=== PATIENT | female | born 1985 ===

== ENCOUNTER 2021-06-06 08:05 | Day surgery (SDC) | payer MEDICAID ==
[~2021-06-06 08:05] MED LIST: Albuterol 0.083% 2.5 MG/3 ML Neb Soln NEB PRN; Bupivacaine 0.5% 30 ML SDV ONE; Lactated Ringers 1,000 ML IV SCH; Lidocaine 1%/Sod Bicarbonate in NS 8.4% 1 ML Syringe IDERM PRN; Sodium Chloride 0.9% 10 ML Syringe FLUSH SCH
--- NOTE | 2021-06-06 08:34 | PCM.PREANE ---
Preanesthetic Assessment - Procedure Proposed Procedure: lap choley - Anesthesia/Transfusion/Family Hx Anesthesia History: Prior Anesthesia Without Reaction Family History of Anesthesia Reaction: No Transfusion History: Prior Transfusion Without Reaction - Review of Systems General: No Symptoms Pulmonary: No Symptoms Cardiovascular: No Symptoms Gastrointestinal: Abdominal Pain (gall bladder), Nausea, Vomiting (since after thanksgiving) Neurological: No Symptoms Other: Reports: Anxiety - Physical Assessment NPO Status Date: 06/05/21 NPO Status Time: 20:00 Vital Signs: Last Vital Signs Temp 98.4 F 06/06/21 07:50 Pulse 78 06/06/21 07:50 Resp 18 06/06/21 07:50 BP 140/76 06/06/21 07:50 Pulse Ox 99 06/06/21 07:50 Height: 5 ft 3 in Weight: 85.6 kg ASA Class: 2 Mental Status: Alert & Oriented x3 Airway Class: Mallampati = 1 Dentition: Reports: Normal Dentition Thyro-Mental Finger Breadths: 3 Mouth Opening Finger Breadths: 3 ROM/Head Extension: Full Lungs: Clear to Auscultation, Normal Respiratory Effort Cardiovascular: Regular Rate, Regular Rhythm - Lab Values: Laboratory Last Values Urine HCG, Qual Negative (NEGATIVE) 06/06/21 07:50 - Allergies Allergies/Adverse Reactions: Allergies Allergy/AdvReac Type Severity Reaction Status Date / Time No Known Allergies Allergy Verified 06/05/21 12:34 - Blood Blood Available: No - Acknowledgements Anesthesia Type Planned: General Anesthesia Pt an Appropriate Candidate for the Planned Anesthesia: Yes Alternatives and Risks of Anesthesia Discussed w Pt/Guardian: Yes Pt/Guardian Understands and Agrees with Anesthesia Plan: Yes PreAnesthesia Questionnaire HEENT History: Reports: Impaired Vision, Other (See Below) Other HEENT History: wears glasses Cardiovascular History: Reports: Heart Murmur, Other (See Below) Other Cardiovascular History: patient states has murmur Respiratory History: Reports: Bronchitis, Recurrent Gastrointestinal History: Reports: Chronic Diarrhea, Other (See Below) Other Gastrointestinal History: RUQ pain Genitourinary History: Reports: None SUPERVISOR CLAIMS History: Reports: None Musculoskeletal History: Reports: Other (See Below) Other Musculoskeletal History: distal fibula fracture Psychiatric History: Reports: Anxiety, Depression, Suicide Attempt Endocrine/Metabolic History: Reports: Obesity/BMI 30+ Hematologic History: Reports: None Immunologic History: Reports: None Oncologic (Cancer) History: Reports: None Dermatologic History: Reports: None - Past Surgical History Head Surgeries/Procedures: Reports: None Cardiovascular Surgical History: Reports: None Respiratory Surgical History: Reports: None GI Surgical History: Reports: None Female Surgical History: Reports: Section Male Surgical History: Reports: None Endocrine Surgical History: Reports: None Neurological Surgical History: Reports: None Dermatological Surgical History: Reports: None - SUBSTANCE USE Tobacco Use Status *Q: Current Every Day Tobacco User Tobacco Use Within Last Twelve Months: Cigarettes Second Hand Smoke Exposure: Yes Days Per Week of Alcohol Use: 1 Recreational Drug Use History: No - HOME MEDS Home Medications: Home Meds . [No Known Home Meds] 06/05/21 [History] - CURRENT (IN HOUSE) MEDS Current Meds: Current Medications Albuterol (Albuterol 0.083% 2.5 Mg/3 Ml Neb Soln) 2.5 mg NEB ONETIME PRN PRN Reason: COPD Stop: 06/06/21 18:00 Lactated Ringer's (Ringers, Lactated) 1,000 mls @ 125 mls/hr IV ASDIRECTED [facility] Stop: 06/06/21 23:00 Lidocaine/Sodium Bicarbonate (Lidocaine 1%/Sod Bicarbonate In Ns 8.4% 1 Ml Syringe) 0.25 ml IDERM ONETIME PRN PRN Reason: Prior to IV Start Stop: 06/06/21 18:00 Sodium Chloride (Sodium Chloride 0.9% 10 Ml Syringe) 10 ml FLUSH 0900,2100 [facility] Stop: 06/06/21 18:00 Discontinued Medications Bupivacaine HCl (Bupivacaine 0.5% 30 Ml Sdv) Confirm Administered Dose 30 ml .ROUTE .STK-MED ONE Stop: 06/06/21 07:45
[2021-06-06] MEDS ORDERED: Rocuronium 50 MG/5 ML Vial ONE (09:31)
[2021-06-06] MEDS ORDERED: Ondansetron 4 MG/2 ML SDV ONE (09:31)
[2021-06-06] MEDS ORDERED: Propofol 200 MG/20 ML SDV ONE (09:32)
[2021-06-06] MEDS ORDERED: fentaNYL 250 MCG/5 ML SDV ONE (09:32)
[2021-06-06] MEDS ORDERED: Midazolam 1 MG/ML 2 ML SDV ONE (09:32)
[2021-06-06] MEDS ORDERED: Lidocaine 1% 4 ML ONE (09:33)
[2021-06-06] MEDS ORDERED: ceFAZolin 1 GM Vial ONE (09:33)
[2021-06-06] MEDS ORDERED: fentaNYL 100 MCG/2 ML SDV ONE ×2 (10:10→10:36)
[2021-06-06] MEDS ORDERED: HYDROmorphone 0.5 MG/0.5 ML Syringe ONE ×2 (10:14→10:15)
[2021-06-06] MEDS ORDERED: Ketorolac 30 MG/ML SDV ONE (10:37)
--- NOTE | 2021-06-06 11:03 | PCM.PRNOTE ---
- Free Text/Narrative Note: Date: 06/06/2021 Operation: laparoscopic cholecystectomy Indication: symptomatic cholelithiasis Surgeon: Asad Laurent MD Findings: chronic cholecystitis with abundant visceral fat surrounding the gallbladder. Critical view of safety obtained. Detailed Report: The patient was taken to the operating room and placed on the table in supine position. Timeout was performed and general endotracheal anesthesia was initiated. The abdomen was prepped and draped in usual sterile fashion. The Veress needle was placed in the left upper quadrant in order to establish pneumoperitoneum. Once pressure reached 15 mmHg, air was aspirated with a needle and syringe just inferior to the umbilicus. A 5 mm bladed trocar was inserted at this site and a 5 mm 30 degree laparoscope was inserted into the abdomen. The Veress needle was seen in there was no apparent injury from placement. The needle was withdrawn, and additional ports were placed under laparoscopic visualization. 2 5 mm bladed trochars were placed at the right upper quadrant for the personal banking assistant to retract the gallbladder and for the surgeon's left hand, and a 12 mm bladed trocar was inserted at the subxiphoid area. The fundus of the gallbladder was grasped and retracted cephalad. The infundibulum was identified and retracted laterally. Dissection commenced, and the cystic duct and artery were carefully skeletonized. There was markedly thickened visceral peritoneum of the gallbladder and associated visceral fat making dissection a little tedious. Once the critical view of safety was obtained, hemolock clips were placed on the structures prior to transection, leaving 2 clips on the remnant of the cystic duct. Monopolar energy was then us ed to dissect the gallbladder off the liver. The specimen was placed in an Endo Catch bag and removed. The dissection field appeared clean and dry. The larger port was removed and fascia was closed with 0 Vicryl using a laparoscopic suture passer. The right upper quadrant lateral ports were removed under laparoscopic visualization and hemostasis appeared satisfactory. Pneumoperitoneum was rel eased and the final port was removed. All incisions were closed the level of the skin with running 4-0 Vicryl suture and dressed with Dermabond. A total of 30 cc 0.5% Marcaine was used for local anesthetic throughout the case. The patient tolerated the procedure well.
[2021-06-06] MEDS ORDERED: fentaNYL 100 MCG/2 ML SDV IVPUSH PRN (11:10)
--- NOTE | 2021-06-06 11:10 | PCM.POSTAN ---
POST ANESTHESIA ASSESSMENT - MENTAL STATUS Mental Status: Alert, Oriented - VITAL SIGNS Vital Signs: Last Vital Signs Temp 36.9 C 06/06/21 07:50 Pulse 78 06/06/21 07:50 Resp 18 06/06/21 07:50 BP 140/76 06/06/21 07:50 Pulse Ox 99 06/06/21 07:50 - RESPIRATORY Respiratory Status: Respiratory Rate WNL, Airway Patent, O2 Saturation Stable, Supplemental Oxygen - CARDIOVASCULAR CV Status: Pulse Rate WNL, Blood Pressure Stable - GASTROINTESTINAL GI Status: No Symptoms - PAIN Pain Score: 0 - POST OP HYDRATION Hydration Status: Adequate & Stable - OBSERVATIONS Free Text/Narrative:: no anesthesia complications noted
[2021-06-06 11:49] VITALS: BP 115/58
[2021-06-06] MEDS ORDERED: oxyCODONE 5 MG Tab PO ONE (11:52)
[2021-06-06 12:13] VITALS: PULSE 78
== END 2021-06-06 12:15 | disposition home or self-care (01) ==
LOC: JD.SDS 08:05
PROVIDERS: ATTEND Surgery
DX: K80.10 Calculus of gallbladder with chronic cholecystitis without obstruction (principal); F41.9 Anxiety disorder, unspecified; F17.210 Nicotine dependence, cigarettes, uncomplicated; F32.A Depression, unspecified; Z79.899 Other long term (current) drug therapy; Z98.890 Other specified postprocedural states
CPT/HCPCS: 47562; 81025; A9270; J0690; J1170; J1885; J2250; J2405; J2704; J3010; J3490; J7120; 00790